=== PATIENT | female | born 1980 | race Caucasian/White ===

== ENCOUNTER 2017-06-10 23:02 | Emergency (ER) | payer BC ==
[~2017-06-10] VITALS: Ht 160 cm; Wt 60.6 kg
[~2017-06-10 23:02] MED LIST: CALTCHW4 PO; CYMB60CA3 PO; FLEX10TA2 PO; GABA300C2 PO; HYDR7.5T38 PO; MELO15TA3 PO; MULTLIQ PO; STOO100C PO; VITACAP33 PO
[2017-06-10] MEDS ORDERED: BACL10TA2 PO (23:14)
[2017-06-10] MEDS ORDERED: AMIT50TA PO (23:14)
[2017-06-11] MEDS ORDERED: NS 1,000 ML IV ONE (01:00)
[2017-06-11 01:46] LABS: BASO % 0.7 % (0.0-1.0); EOS # 0.1 K/mm3 (0.0-0.50); EOS % 0.9 % (0.0-3.0); LARGE UNSTAINED CELL # 0.1 K/mm3 (0.0-0.4); LARGE UNSTAINED CELL % 1.9 % (0.0-4.0); LYMPH # 2.9 K/mm3 (1.5-4.5); MEAN CORPUSCULAR HEMOGLOBIN 27.6 pg (27.0-33.0); MEAN CORPUSCULAR HGB CONC 32.4 g/dl (32.0-36.5); MEAN CORPUSCULAR VOLUME 85.1 fl (80.0-96.0); MONO # 0.4 K/mm3 (0.0-0.8); NEUTROPHILS # 3.9 K/mm3 (1.8-7.7); NEUTROPHILS % 53.5 % (36.0-66.0); PLATELET COUNT, AUTOMATED 297 k/mm3 (150-450); RED CELL DISTRIBUTION WIDTH 13.3 % (11.5-14.5); WHITE BLOOD COUNT 7.2 K/mm3 (4.0-10.0)
[2017-06-11 02:02] LABS: ERYTHROCYTE SEDIMENTATION RATE 18 mm/hr (0-20)
[2017-06-11 02:03] LABS: ALBUMIN 4.1 GM/DL (3.2-5.2); ALBUMIN/GLOBULIN RATIO 1.05 (1.00-1.93); ALKALINE PHOSPHATASE 72 U/L (45-117); ALT/SGPT 35 U/L (12-78); ANION GAP 5 MEQ/L (8-16); AST/SGOT 16 U/L (15-37); BILIRUBIN,DIRECT 0.1 MG/DL (0.0-0.2); BILIRUBIN,TOTAL 0.3 MG/DL (0.2-1.0); BLOOD UREA NITROGEN 8 MG/DL (7-18); CALCIUM LEVEL 9.4 MG/DL (8.5-10.1); CARBON DIOXIDE LEVEL 32 MEQ/L (21-32); CHLORIDE LEVEL 102 MEQ/L (98-107); CREATININE FOR GFR 0.65 MG/DL (0.55-1.02); GLOMERULAR FILTRATION RATE > 60.0 (>60); GLUCOSE, FASTING 96 MG/DL (70-105); POTASSIUM SERUM 3.9 MEQ/L (3.5-5.1); SODIUM LEVEL 139 MEQ/L (136-145)
[2017-06-11] MEDS ORDERED: AMIT25TA PO (02:24)
[2017-06-11 02:29] VITALS: BP 123/68
== END 2017-06-11 02:34 | disposition home or self-care (01) ==
LOC: M ED 23:02
DX: R20.2 Paresthesia of skin (principal); T43.015A Adverse effect of tricyclic antidepressants, initial encounter; X58.XXXA Exposure to other specified factors, initial encounter; Y92.89 Other specified places as the place of occurrence of the external cause; Y93.89 Activity, other specified; Y99.8 Other external cause status; K22.4 Dyskinesia of esophagus; Z79.899 Other long term (current) drug therapy

== ENCOUNTER → 2017-07-30 | Outpatient (REF) | payer BC ==
[~2017-07-30] MED LIST changes: +AMIT25TA PO; +AMIT50TA PO; +BACL10TA2 PO; +IRON50TA PO; +PERC5TAB12 PO; +TYLE1TAB5 PO
[2017-07-30 17:28] LABS: PERCENT SATURATION 9.8 % (13.2-45.0)
[2017-07-30 17:41] LABS: FOLATE 16.2 NG/ML (>5.4)
== END ==
LOC: M SFHCCLAY 10:56
PROVIDERS: ATTEND Nurse Practitioner Family
DX: R20.2 Paresthesia of skin (principal)

== ENCOUNTER 2017-08-12 20:04 | Emergency (ER) | payer BC ==
[~2017-08-12] VITALS: Ht 160 cm; Wt 57.7 kg
[2017-08-12 20:04] VITALS: BP 133/70
[~2017-08-12 20:04] MED LIST changes: -IRON50TA PO; -PERC5TAB12 PO; -TYLE1TAB5 PO
[2017-08-12] MEDS ORDERED: TYLE1TAB5 PO (20:20)
[2017-08-12] MEDS ORDERED: IRON50TA PO (20:21)
[2017-08-12] MEDS ORDERED: OXYCODONE/APAP 5MG/325MG(BULK FOR ED) 1 TABLET PO ONE (22:30)
[2017-08-12] MEDS ORDERED: PERC5TAB12 PO (22:31)
== END 2017-08-12 23:13 | disposition home or self-care (01) ==
LOC: M ED 20:04
DX: R68.84 Jaw pain (principal); Z88.8 Allergy status to other drugs, medicaments and biological substances

== ENCOUNTER 2017-09-17 16:19 | Emergency (ER) | payer BC ==
[~2017-09-17] VITALS: Ht 162.6 cm; Wt 56.4 kg
[~2017-09-17 16:19] MED LIST changes: +IRON50TA PO; +PERC5TAB12 PO; +TYLE1TAB5 PO
[2017-09-17] MEDS ORDERED: AMOX500C PO (16:41)
[2017-09-17] MEDS ORDERED: VICO7.5T11 PO (16:41)
[2017-09-17] MEDS ORDERED: PRED10TA2 PO (16:41)
[2017-09-17] MEDS ORDERED: BACL10TA2 PO (16:41)
[2017-09-17] MEDS ORDERED: OXCA300T PO (16:41)
[2017-09-17] MEDS ORDERED: NS 1,000 ML IV ONE (20:00)
[2017-09-17 20:24] LABS: BASO % 0.2 % (0.0-1.0); IMMATURE GRANULOCYTE % 0.1 % (0-0); LYMPH # 3.7 10^3/uL (1.5-4.5); LYMPH % 37.2 % (24.0-44.0); MEAN CORPUSCULAR HEMOGLOBIN 27.4 pg (27.0-33.0); MEAN CORPUSCULAR HGB CONC 32.5 g/dl (32.0-36.5); MEAN CORPUSCULAR VOLUME 84.2 fl (80.0-96.0); MONO # 0.5 10^3/uL (0.0-0.8); NEUTROPHILS # 5.7 10^3/uL (1.8-7.7); NEUTROPHILS % 57.5 % (36.0-66.0); PLATELET COUNT, AUTOMATED 341 10^3/uL (150-450); RED CELL DISTRIBUTION WIDTH 14.3 % (11.5-14.5); WHITE BLOOD COUNT 9.9 10^3/uL (4.0-10.0)
[2017-09-17 20:51] LABS: ANION GAP 8 MEQ/L (8-16); BLOOD UREA NITROGEN 14 MG/DL (7-18); CALCIUM LEVEL 9.1 MG/DL (8.5-10.1); CARBON DIOXIDE LEVEL 29 MEQ/L (21-32); CHLORIDE LEVEL 103 MEQ/L (98-107); GLOMERULAR FILTRATION RATE > 60.0 (>60); GLUCOSE, FASTING 91 MG/DL (70-105); SODIUM LEVEL 140 MEQ/L (136-145)
[2017-09-17] MEDS ORDERED: ISOVUE-370 76% 100ML VIAL (Q9967) As Ordered ONE (21:03)
--- NOTE | 2017-09-17 21:40 | REPUSA ---
CT of the facial bones with contrast Clinical history: right-sided sinus pressure. Technique: Multiple axial CT images were obtained through the facial bones and paranasal sinuses util izing 3 mm axial slices after administration of nonionic intravenous contrast. Coronal and sagittal r econstructions were also obtained. Findings: The visualized paranasal sinuses are clear, other than a small mucus retention cyst in the inferior left maxillary sinus. The osteomeatal complexes are patent bilaterally. The nasal septum is midline. The visualized mastoid air cells are clear. The osseous structures do not demonstrate any ac marshall abnormalities. The superficial soft tissues are within normal limits. No abnormal areas of enhanc ement are appreciated. The vascular structures demonstrate normal caliber and contour. Impression: Unremarkable CT examination of the facial bones and paranasal sinuses. Small mucus retent ion cyst in the inferior left maxillary sinus.
[2017-09-17] MEDS ORDERED: NEUR300C PO (22:36)
[2017-09-17] MEDS ORDERED: KETOROLAC 30 MG/ML VIAL (J1885) IV ONE (22:45)
[2017-09-17 23:20] VITALS: BP 134/70
== END 2017-09-17 23:24 | disposition home or self-care (01) ==
LOC: M ED 16:19
DX: G89.18 Other acute postprocedural pain (principal); R51 Headache; Z79.2 Long term (current) use of antibiotics; Z79.52 Long term (current) use of systemic steroids; Z79.899 Other long term (current) drug therapy; Z88.8 Allergy status to other drugs, medicaments and biological substances; Z98.818 Other dental procedure status
CPT/HCPCS: 70487; 80048; 81025; 85025; 96374; 99284; J1885; Q9967

== ENCOUNTER 2017-10-18 08:52 | Emergency (ER) | payer BC ==
[~2017-10-18] VITALS: Ht 157.5 cm; Wt 56.4 kg
[~2017-10-18 08:52] MED LIST changes: +AMOX500C PO; +NEUR300C PO; +OXCA300T PO; +PRED10TA2 PO; +VICO7.5T11 PO
[2017-10-18 08:53] VITALS: BP 123/77
[2017-10-18] MEDS ORDERED: HYDR-3719 PO (09:02)
[2017-10-18] MEDS ORDERED: MIRA3350 PO (09:02)
[2017-10-18] MEDS ORDERED: CARB200T98 PO (09:02)
[2017-10-18] MEDS ORDERED: PRED10TA2 PO (09:28)
[2017-10-18] MEDS ORDERED: BENA25TA10 PO (09:28)
[2017-10-18] MEDS ORDERED: SM A PO (09:28)
[2017-10-18] MEDS ORDERED: predniSONE 20 MG TAB PO ONE (09:30)
[2017-10-18] MEDS ORDERED: diphenhydrAMINE 50 MG CAP PO ONE (09:30)
[2017-10-18] MEDS ORDERED: FAMOTIDINE 20 MG TAB PO ONE (09:30)
== END 2017-10-18 09:40 | disposition home or self-care (01) ==
LOC: M ED 08:52
DX: R21 Rash and other nonspecific skin eruption (principal); T42.1X5A Adverse effect of iminostilbenes, initial encounter; X58.XXXA Exposure to other specified factors, initial encounter; Y92.89 Other specified places as the place of occurrence of the external cause; Y93.89 Activity, other specified; Y99.8 Other external cause status; Z88.8 Allergy status to other drugs, medicaments and biological substances

== ENCOUNTER → 2017-10-20 | Outpatient (REF) | payer BC ==
[~2017-10-20] MED LIST changes: +BENA25TA10 PO; +CARB200T98 PO; +HYDR-3719 PO; +MIRA3350 PO; +SM A PO; +VALA500T2 PO; +[UNRECOGNIZED DRUG - CODE] EX
[2017-10-20 11:38] LABS: MEAN CORPUSCULAR HEMOGLOBIN 27.7 pg (27.0-33.0); MEAN CORPUSCULAR HGB CONC 32.9 g/dl (32.0-36.5); MEAN CORPUSCULAR VOLUME 84.3 fl (80.0-96.0); PLATELET COUNT, AUTOMATED 295 10^3/uL (150-450); RED CELL DISTRIBUTION WIDTH 14.7 % (11.5-14.5); WHITE BLOOD COUNT 10.7 10^3/uL (4.0-10.0)
[2017-10-20 12:12] LABS: VITAMIN B12 LEVEL 1336 PG/ML (247-911)
[2017-10-20 12:23] LABS: ALBUMIN 3.8 GM/DL (3.2-5.2); ALBUMIN/GLOBULIN RATIO 1.15 (1.00-1.93); ALKALINE PHOSPHATASE 59 U/L (45-117); ALT/SGPT 32 U/L (12-78); ANION GAP 9 MEQ/L (8-16); AST/SGOT 23 U/L (7-37); BILIRUBIN,TOTAL 0.4 MG/DL (0.2-1.0); BLOOD UREA NITROGEN 15 MG/DL (7-18); CALCIUM LEVEL 8.5 MG/DL (8.5-10.1); CARBON DIOXIDE LEVEL 26 MEQ/L (21-32); CHLORIDE LEVEL 108 MEQ/L (98-107); CHOLESTEROL LEVEL 250 MG/DL (<200); CREATININE FOR GFR 0.61 MG/DL (0.55-1.02); FERRITIN 36 NG/ML (8-252); GLOMERULAR FILTRATION RATE > 60.0 (>60); GLUCOSE, FASTING 89 MG/DL (70-105); PERCENT SATURATION 14.2 % (13.2-45.0); POTASSIUM SERUM 3.6 MEQ/L (3.5-5.1); SODIUM LEVEL 143 MEQ/L (136-145); TOTAL IRON BINDING CAPACITY 353 UG/DL (250-450); TOTAL PROTEIN 7.1 GM/DL (6.4-8.2); TRIGLYCERIDES LEVEL 102 MG/DL (<150)
[2017-10-20 12:24] LABS: FOLATE 19.7 NG/ML (>5.4)
[2017-10-22 00:07] LABS: Lyme Disease IgG/IgM Antibodie <0.91 ISR (0.00-0.90); Lyme Disease IgM Ab Quantitati <0.80 index (0.00-0.79)
== END ==
LOC: M SFHCCLAY 07:13
PROVIDERS: ATTEND Nurse Practitioner Family
DX: D50.9 Iron deficiency anemia, unspecified (principal); K21.0 Gastro-esophageal reflux disease with esophagitis; Z13.6 Encounter for screening for cardiovascular disorders; G44.309 Post-traumatic headache, unspecified, not intractable; Z13.21 Encounter for screening for nutritional disorder

== ENCOUNTER 2017-10-24 01:15 | Emergency (ER) | payer BC ==
[~2017-10-24] VITALS: Ht 162.6 cm; Wt 56.4 kg
[~2017-10-24 01:15] MED LIST changes: -VALA500T2 PO; -[UNRECOGNIZED DRUG - CODE] EX
[2017-10-24] MEDS ORDERED: VALA500T2 PO (01:26)
[2017-10-24] MEDS ORDERED: [UNRECOGNIZED DRUG - CODE] EX (02:00)
[2017-10-24] MEDS ORDERED: clonazePAM 0.5 MG TAB PO ONE (02:15)
[2017-10-24 02:31] VITALS: BP 108/73
== END 2017-10-24 02:55 | disposition home or self-care (01) ==
LOC: M ED 01:15
DX: F41.9 Anxiety disorder, unspecified (principal); R21 Rash and other nonspecific skin eruption

== ENCOUNTER → 2017-11-26 | Outpatient (REF) | payer BC ==
[2017-11-26 12:30] LABS: BASO % 0.7 % (0.0-1.0); EOS # 0.1 10^3/uL (0.0-0.50); EOS % 0.9 % (0.0-3.0); HEMATOCRIT 40.6 % (36.0-47.0); IMMATURE GRANULOCYTE % 0.2 % (0-0); LYMPH # 2.8 10^3/uL (1.5-4.5); LYMPH % 49.9 % (24.0-44.0); MEAN CORPUSCULAR HEMOGLOBIN 27.5 pg (27.0-33.0); MONO # 0.4 10^3/uL (0.0-0.8); MONO % 6.2 % (0.0-5.0); NEUTROPHILS # 2.4 10^3/uL (1.8-7.7); NEUTROPHILS % 42.1 % (36.0-66.0); PLATELET COUNT, AUTOMATED 323 10^3/uL (150-450); RED BLOOD COUNT 4.72 10^6/uL (4.00-5.40); RED CELL DISTRIBUTION WIDTH 14.5 % (11.5-14.5); WHITE BLOOD COUNT 5.6 10^3/uL (4.0-10.0)
[2017-11-26 13:02] LABS: IMMUNOGLOBULIN E 6.2 IU/ML (<100)
[2017-11-26 13:20] LABS: ERYTHROCYTE SEDIMENTATION RATE 8 mm/hr (0-20)
[2017-11-28 00:06] LABS: ENDOMYSIAL ABY IgA Negative (Negative); TISSUE TRANSGLUTAMINASE IgA <2 U/mL (0-3); TISSUE TRANSGLUTAMINASE IgG <2 U/mL (0-5); UNITSIGA FOR GLIADIN IGA 2 units (0-19); UNITSIGG FOR GLIADIN IGG 1 units (0-19)
== END ==
LOC: M LABDRAWC 11:32
DX: L29.9 Pruritus, unspecified (principal); L20.9 Atopic dermatitis, unspecified; R53.81 Other malaise
CPT/HCPCS: 82785

== ENCOUNTER → 2018-05-02 | Outpatient (REF) | payer BC ==
[2018-05-03 10:16] LABS: ANTINUCLEAR ANTIBODIES DIRECT Negative (Negative)
== END ==
LOC: M LABDRAWC 11:11
DX: L56.8 Other specified acute skin changes due to ultraviolet radiation (principal)
CPT/HCPCS: 36415

== ENCOUNTER → 2018-10-05 | Outpatient (REF) | payer BC ==
[2018-10-05 11:38] LABS: HEMATOCRIT 39.6 % (36.0-47.0); HEMOGLOBIN 12.7 g/dl (12.0-15.5); MEAN CORPUSCULAR HEMOGLOBIN 28.1 pg (27.0-33.0); MEAN CORPUSCULAR HGB CONC 32.1 g/dl (32.0-36.5); MEAN CORPUSCULAR VOLUME 87.6 fl (80.0-96.0); PLATELET COUNT, AUTOMATED 277 10^3/uL (150-450); RED BLOOD COUNT 4.52 10^6/uL (4.00-5.40); RED CELL DISTRIBUTION WIDTH 13.8 % (11.5-14.5)
[2018-10-05 11:55] LABS: ADD MANUAL DIFFER YES; DIFF SLIDE NUMBER 180; POSITIVE DIFF POS FLAG; WHITE BLOOD COUNT 9.1 10^3/uL (4.0-10.0)
[2018-10-05 12:18] LABS: ERYTHROCYTE SEDIMENTATION RATE 2 mm/hr (0-20)
[2018-10-05 12:43] LABS: LYMPHOCYTES 76 % (16-52); MONOCYTES 1 % (0-8); NEUTROPHILS 23 % (35-75)
[2018-10-05 12:44] LABS: PLATELET ESTIMATE NORMAL (NORMAL)
[2018-10-05 12:54] LABS: ALBUMIN 3.4 GM/DL (3.2-5.2); ALBUMIN/GLOBULIN RATIO 1.26 (1.00-1.93); ALKALINE PHOSPHATASE 42 U/L (45-117); ALT/SGPT 22 U/L (12-78); ANION GAP 9 MEQ/L (8-16); AST/SGOT 13 U/L (7-37); BILIRUBIN,TOTAL 0.6 MG/DL (0.2-1.0); BLOOD UREA NITROGEN 12 MG/DL (7-18); C REACTIVE PROTEIN QUANTITATIV < 0.30 MG/DL (0.00-0.30); CALCIUM LEVEL 8.2 MG/DL (8.5-10.1); CARBON DIOXIDE LEVEL 30 MEQ/L (21-32); CHLORIDE LEVEL 103 MEQ/L (98-107); CREATININE FOR GFR 0.75 MG/DL (0.55-1.30); FERRITIN 22 NG/ML (8-252); GLOMERULAR FILTRATION RATE > 60.0 (>60); GLUCOSE, FASTING 61 MG/DL (70-100); IRON (FE) 67 UG/DL (50-170); PERCENT SATURATION 19.9 % (13.2-45.0); POTASSIUM SERUM 3.3 MEQ/L (3.5-5.1); RHEUMATOID FACTOR QUANT < 10.0 IU/ML (<15.0); SODIUM LEVEL 142 MEQ/L (136-145); TOTAL IRON BINDING CAPACITY 337 UG/DL (250-450); TOTAL PROTEIN 6.1 GM/DL (6.4-8.2); VITAMIN B12 LEVEL 1154 PG/ML (247-911)
[2018-10-08 15:15] LABS: ANA (HEP2) Negative (.); ANGIOTENSIN 1 CONVERTING ENZYM 31 U/L (14-82); Antimyeloperxidase(MPO) Abs <9.0 U/mL (0.0-9.0); Antiproteinase 3 (PR-3) Abs <3.5 U/mL (0.0-3.5); Cytoplasmic (C-ANCA) <1:20 titer (Neg:<1:20); Lyme Disease IgG/IgM Antibodie <0.91 ISR (0.00-0.90); Lyme Disease IgM Ab Quantitati <0.80 index (0.00-0.79); Perinuclear (P-ANCA) <1:20 titer (Neg:<1:20)
== END ==
LOC: M SFHCCLAY 09:09
DX: G51.8 Other disorders of facial nerve (principal); D50.9 Iron deficiency anemia, unspecified
CPT/HCPCS: 82746

== ENCOUNTER → 2018-11-28 | Outpatient (REF) | payer BC ==
[~2018-11-28] MED LIST changes: -OXCA300T PO; +OXCA300T14 PO; +VALA500T5 PO; +[UNRECOGNIZED DRUG - CODE] EX
[2018-11-28 12:37] LABS: CALCIUM LEVEL 8.9 MG/DL (8.5-10.1); POTASSIUM SERUM 3.9 MEQ/L (3.5-5.1)
== END ==
LOC: M SFHCCLAY 07:55
PROVIDERS: ATTEND Nurse Practitioner Family
DX: K21.0 Gastro-esophageal reflux disease with esophagitis (principal); D50.9 Iron deficiency anemia, unspecified

== ENCOUNTER → 2018-11-28 | Outpatient (REF) | payer BC ==
[2018-11-28 12:28] LABS: IMMUNOGLOBULIN E 18.5 IU/ML (<100); THYROID PEROXIDASE ANTIBODY < 28.0 U/ML (<60.0)
== END ==
LOC: M LABDRAWC 08:01
PROVIDERS: ATTEND Physician Assistant
DX: L50.9 Urticaria, unspecified (principal); R53.81 Other malaise

== ENCOUNTER → 2019-02-24 | Outpatient (REF) | payer BC ==
[2019-02-24 12:43] LABS: MAGNESIUM LEVEL 1.9 MG/DL (1.8-2.4)
[2019-02-24 13:06] LABS: TOTAL 25(OH) VITAMIN D 26.3 NG/ML (30.0-100.0)
== END ==
LOC: M LABDRAWC 11:53
PROVIDERS: ATTEND Internal Medicine Gastroenterology
DX: K21.9 Gastro-esophageal reflux disease without esophagitis (principal); K59.00 Constipation, unspecified; G50.0 Trigeminal neuralgia; R13.10 Dysphagia, unspecified

== ENCOUNTER → 2019-02-24 | Outpatient (REF) | payer BC ==
[2019-02-24 12:50] LABS: CHOLESTEROL RISK RATIO 6.264 (<5)
== END ==
LOC: M SFHCCLAY 08:38
PROVIDERS: ATTEND Nurse Practitioner Family
DX: E78.5 Hyperlipidemia, unspecified (principal)

== ENCOUNTER → 2019-06-23 | Outpatient (CLI) | payer BC ==
[~2019-06-23] MED LIST changes: -VICO7.5T11 PO; +VICO7.5T12 PO
--- NOTE | 2019-06-23 09:37 | REP ---
Preoperative evaluation. FINDINGS: The superior mediastinal structures are midline. The cardiac silhouette is unremarkable in size, shape, and position. The diaphragmatic surfaces of the lungs are regular, and the costophrenic angles are clear. The pulmonary waterman are clear. The imaged osseous structures are intact. IMPRESSION: There is no acute cardiopulmonary disease. Electronically Signed by Ketan Scott DO 06/23/2019 02:19 P
[2019-06-23 12:27] LABS: BASO % 0.6 % (0.0-1.0); EOS % 0.4 % (0.0-3.0); HEMATOCRIT 42.6 % (36.0-47.0); HEMOGLOBIN 13.6 g/dl (12.0-15.5); LYMPH # 1.9 10^3/uL (1.5-4.5); LYMPH % 28.6 % (24.0-44.0); MEAN CORPUSCULAR HEMOGLOBIN 26.8 pg (27.0-33.0); MEAN CORPUSCULAR HGB CONC 31.9 g/dl (32.0-36.5); MEAN CORPUSCULAR VOLUME 83.9 fl (80.0-96.0); MONO # 0.4 10^3/uL (0.0-0.8); MONO % 5.4 % (0.0-5.0); NEUTROPHILS # 4.4 10^3/uL (1.8-7.7); NEUTROPHILS % 64.7 % (36.0-66.0); PLATELET COUNT, AUTOMATED 307 10^3/uL (150-450); RED BLOOD COUNT 5.08 10^6/uL (4.00-5.40); WHITE BLOOD COUNT 6.7 10^3/uL (4.0-10.0)
[2019-06-23 12:29] LABS: ALBUMIN 3.7 GM/DL (3.2-5.2); BLOOD UREA NITROGEN 14 MG/DL (7-18); CARBON DIOXIDE LEVEL 28 MEQ/L (21-32); CHLORIDE LEVEL 106 MEQ/L (98-107); CHOLESTEROL LEVEL 247 MG/DL (< 200); CREATININE FOR GFR 0.73 MG/DL (0.55-1.30); GLOMERULAR FILTRATION RATE > 60.0 (>60); GLUCOSE,RANDOM 110 MG/DL (LESS THAN 200); HCG, SERUM QUANTITATIVE < 1.0 MIU/ML; POTASSIUM SERUM 3.8 MEQ/L (3.5-5.1); SODIUM LEVEL 140 MEQ/L (136-145); TOTAL PROTEIN 7.1 GM/DL (6.4-8.2)
[2019-06-23 12:36] LABS: INR 1.03; PROTHROMBIN TIME 13.2 SECONDS (11.8-14.0)
[2019-06-23 12:37] LABS: PARTIAL THROMBOPLASTIN TIME 36.4 SECONDS (25.0-38.4)
[2019-06-23 12:44] LABS: APPEARANCE, URINE CLEAR (CLEAR); BACTERIA, URINE AUTO 1+ (NEGATIVE); BILIRUBIN, URINE AUTO NEGATIVE (NEGATIVE); BLOOD, URINE BLOOD 3+ (NEGATIVE); COLOR, URINE RED (YELLOW); GLUCOSE, URINE (UA) AUTO NEGATIVE (NEGATIVE); KETONE, URINE AUTO NEGATIVE (NEGATIVE); LEUKOCYTE ESTERASE, URINE AUTO 2+ (NEGATIVE); NITRITE, URINE AUTO NEGATIVE (NEGATIVE); PROTEIN, URINE AUTO NEGATIVE (NEGATIVE); RBC, URINE AUTO TNTC /HPF (0-3); SPECIFIC GRAVITY URINE AUTO 1.006 (1.002-1.035); SQUAMOUS EPITHELIAL CELL UR AU 0 /HPF (0-6); UROBILINOGEN, URINE AUTO 0.2 mg/dL (0.0-2.0); WBC, URINE AUTO 22 /HPF (0-3)
== END ==
LOC: M CLY 08:44
PROVIDERS: ATTEND Specialist
DX: Z00.00 Encounter for general adult medical examination without abnormal findings (principal)

== ENCOUNTER → 2019-11-22 | Outpatient (REF) | payer BC ==
[2019-11-22 12:04] LABS: HEMATOCRIT 41.6 % (36.0-47.0); HEMOGLOBIN 13.1 g/dl (12.0-15.5); MEAN CORPUSCULAR HEMOGLOBIN 26.3 pg (27.0-33.0); MEAN CORPUSCULAR HGB CONC 31.5 g/dl (32.0-36.5); MEAN CORPUSCULAR VOLUME 83.4 fl (80.0-96.0); PLATELET COUNT, AUTOMATED 291 10^3/uL (150-450); RED BLOOD COUNT 4.99 10^6/uL (4.00-5.40); WHITE BLOOD COUNT 7.6 10^3/uL (4.0-10.0)
[2019-11-22 12:17] LABS: ALBUMIN 3.8 GM/DL (3.2-5.2); ALT/SGPT 43 U/L (12-78); BILIRUBIN,TOTAL 0.6 MG/DL (0.2-1.0); BLOOD UREA NITROGEN 8 MG/DL (7-18); CALCIUM LEVEL 9.1 MG/DL (8.5-10.1); CARBON DIOXIDE LEVEL 28 MEQ/L (21-32); CHLORIDE LEVEL 104 MEQ/L (98-107); CHOLESTEROL LEVEL 291 MG/DL (<200); CHOLESTEROL RISK RATIO 6.062 (<5); CREATININE FOR GFR 0.66 MG/DL (0.55-1.30); FERRITIN 18 NG/ML (8-252); GLOMERULAR FILTRATION RATE > 60.0 (>60); GLUCOSE, FASTING 91 MG/DL (70-100); HDL CHOLESTEROL 48 MG/DL (>40); IRON (FE) 62 UG/DL (50-170); LDL CHOLESTEROL 201 MG/DL (<100); NON-HDL-C 243 MG/DL; PERCENT SATURATION 14.4 % (13.2-45.0); POTASSIUM SERUM 3.8 MEQ/L (3.5-5.1); SODIUM LEVEL 139 MEQ/L (136-145); TOTAL 25(OH) VITAMIN D 31.7 NG/ML (30.0-100.0); TOTAL IRON BINDING CAPACITY 432 UG/DL (250-450); TOTAL PROTEIN 7.2 GM/DL (6.4-8.2); TRIGLYCERIDES LEVEL 212 MG/DL (<150); VITAMIN B12 LEVEL 910 PG/ML (247-911)
== END ==
LOC: M SFHCCLAY 08:10
PROVIDERS: ATTEND Nurse Practitioner Family
DX: K21.0 Gastro-esophageal reflux disease with esophagitis (principal); E78.5 Hyperlipidemia, unspecified; D50.9 Iron deficiency anemia, unspecified

== ENCOUNTER → 2020-01-03 | Outpatient (REF) | payer BC ==
[2020-01-03 12:09] LABS: ALBUMIN 3.8 GM/DL (3.2-5.2); BILIRUBIN,DIRECT 0.1 MG/DL (0.0-0.2); BILIRUBIN,TOTAL 0.5 MG/DL (0.2-1.0); CHOLESTEROL RISK RATIO 3.744 (<5); TOTAL PROTEIN 7.3 GM/DL (6.4-8.2)
== END ==
LOC: M SFHCCLAY 08:19
PROVIDERS: ATTEND Nurse Practitioner Family
DX: E78.5 Hyperlipidemia, unspecified (principal)

== ENCOUNTER → 2020-03-19 | Outpatient (CLI) | payer BC ==
[~2020-03-19] MED LIST changes: +PROHANCE 279.3MG/ML 15ML VIAL As Ordered ONE; +PROHANCE 279.3MG/ML 5ML VIAL As Ordered ONE
--- NOTE | 2020-03-19 18:47 | REPVR ---
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 Contrast material: PROHANCE; Contrast volume: 17 ml; Contrast route: IV; COMPARISON: No relevant prior studies available. FINDINGS: Brain: There is no restricted diffusion within the brain to suggest an acute infarct. No significant white matter disease. No cerebral edema. Artifact limits the diffusion sequence. Aside from the artifact, there is no definitive restricted diffusion acute territorial type infarct. 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 No abnormally enhancing intracranial mass is visualized. This study is limited by the absence of axial T1 weighted sequence. Ventricles: No ventriculomegaly. Bones/joints: Unremarkable, as visualized. Soft tissues: There is a linear band of hypointensity within the right occipital scalp, likely representing scar tissue. Sinuses: A mucous retention cyst or polyp is identified in the left maxillary sinus. Mastoid air cells: No mastoid effusion. Internal auditory canals: There is no mass effect or pathological enhancement involving the bilateral internal auditory canals or cerebellopontine angle cisterns. Orbits: No acute abnormality visualized. IMPRESSION: 1. No definitive acute intracranial abnormality. 2. There is no mass effect or pathological enhancement involving the bilateral internal auditory canals or cerebellopontine angle cisterns. 3. Paranasal sinus disease. 4. Additional findings described above. Electronically signed by: Mario Francis On 03/19/2020 18:46:33 PM
== END ==
LOC: M RAD 14:52
PROVIDERS: ATTEND Nurse Practitioner Family
DX: G51.9 Disorder of facial nerve, unspecified (principal)
CPT/HCPCS: 70553; A9576

== ENCOUNTER → 2020-04-04 | Outpatient (REF) | payer BC ==
[~2020-04-04] MED LIST changes: -PROHANCE 279.3MG/ML 15ML VIAL As Ordered ONE; -PROHANCE 279.3MG/ML 5ML VIAL As Ordered ONE
[2020-04-04 13:24] LABS: CHOLESTEROL RISK RATIO 3.476 (<5)
== END ==
LOC: M SFHCCLAY 08:08
PROVIDERS: ATTEND Nurse Practitioner Family
DX: E78.5 Hyperlipidemia, unspecified (principal)

== ENCOUNTER → 2020-05-17 | Outpatient (CLI) | payer BC | LOC: M LABSMTC 12:56 | PROVIDERS: ATTEND Family Medicine | DX: Z11.59 Encounter for screening for other viral diseases (principal); Z20.828 Contact with and (suspected) exposure to other viral communicable diseases | CPT/HCPCS: C9803; U0003 ==

== ENCOUNTER → 2020-07-05 | Outpatient (REF) | payer BC ==
[2020-07-05 12:50] LABS: HEMATOCRIT 39.5 % (36.0-47.0); HEMOGLOBIN 12.5 g/dl (12.0-15.5); MEAN CORPUSCULAR HEMOGLOBIN 26.3 pg (27.0-33.0); MEAN CORPUSCULAR HGB CONC 31.6 g/dl (32.0-36.5); MEAN CORPUSCULAR VOLUME 83.2 fl (80.0-96.0); PLATELET COUNT, AUTOMATED 307 10^3/uL (150-450); RED BLOOD COUNT 4.75 10^6/uL (4.00-5.40); WHITE BLOOD COUNT 8.2 10^3/uL (4.0-10.0)
[2020-07-05 13:33] LABS: ALBUMIN 3.6 GM/DL (3.2-5.2); ALT/SGPT 48 U/L (12-78); BILIRUBIN,TOTAL 0.7 MG/DL (0.2-1.0); BLOOD UREA NITROGEN 18 MG/DL (7-18); CALCIUM LEVEL 8.7 MG/DL (8.5-10.1); CARBON DIOXIDE LEVEL 29 MEQ/L (21-32); CHLORIDE LEVEL 105 MEQ/L (98-107); CHOLESTEROL LEVEL 154 MG/DL (<200); CHOLESTEROL RISK RATIO 4.277 (<5); CREATININE FOR GFR 0.65 MG/DL (0.55-1.30); FERRITIN 27 NG/ML (8-252); FOLATE 17.3 NG/ML (>5.4); GLOMERULAR FILTRATION RATE > 60.0 (>60); GLUCOSE, FASTING 84 MG/DL (70-100); HDL CHOLESTEROL 36 MG/DL (>40); IRON (FE) 43 UG/DL (50-170); LDL CHOLESTEROL 85 MG/DL (<100); NON-HDL-C 118 MG/DL; PERCENT SATURATION 12.1 % (13.2-45.0); POTASSIUM SERUM 3.6 MEQ/L (3.5-5.1); SODIUM LEVEL 141 MEQ/L (136-145); TOTAL 25(OH) VITAMIN D 40.2 NG/ML (30.0-100.0); TOTAL IRON BINDING CAPACITY 356 UG/DL (250-450); TRIGLYCERIDES LEVEL 164 MG/DL (<150); VITAMIN B12 LEVEL 874 PG/ML (247-911)
== END ==
LOC: M LABDRAWC 11:16
PROVIDERS: ATTEND Nurse Practitioner Family
DX: K21.0 Gastro-esophageal reflux disease with esophagitis (principal); E78.5 Hyperlipidemia, unspecified; D50.9 Iron deficiency anemia, unspecified; G89.29 Other chronic pain

== ENCOUNTER → 2020-09-23 | Outpatient (REF) | payer BC ==
[2020-09-23 15:03] LABS: FREE T4 1.06 NG/DL (0.76-1.46); THYROID PEROXIDASE ANTIBODY 41.2 U/ML (<60.0); THYROID STIMULATING HORMONE 0.462 uIU/ML (0.358-3.740)
== END ==
LOC: M SFHCRHEU 10:40
PROVIDERS: ATTEND Internal Medicine
DX: M79.7 Fibromyalgia (principal)

== ENCOUNTER → 2021-02-04 | Outpatient (REF) | payer BC ==
[~2021-02-04] MED LIST changes: -AMIT25TA PO; +AMIT25TA17 PO
[2021-02-04 11:34] LABS: HEMATOCRIT 43.1 % (36.0-47.0); HEMOGLOBIN 13.2 g/dl (12.0-15.5); MEAN CORPUSCULAR HEMOGLOBIN 26.3 pg (27.0-33.0); MEAN CORPUSCULAR HGB CONC 30.6 g/dl (32.0-36.5); MEAN CORPUSCULAR VOLUME 85.9 fl (80.0-96.0); PLATELET COUNT, AUTOMATED 353 10^3/uL (150-450); RED BLOOD COUNT 5.02 10^6/uL (4.00-5.40); WHITE BLOOD COUNT 7.8 10^3/uL (4.0-10.0)
[2021-02-04 12:00] LABS: ERYTHROCYTE SEDIMENTATION RATE 32 mm/hr (0-20)
[2021-02-04 12:04] LABS: ALBUMIN 3.8 GM/DL (3.2-5.2); ALT/SGPT 39 U/L (12-78); BILIRUBIN,TOTAL 0.4 MG/DL (0.2-1.0); BLOOD UREA NITROGEN 12 MG/DL (7-18); CALCIUM LEVEL 9.3 MG/DL (8.5-10.1); CARBON DIOXIDE LEVEL 32 MEQ/L (21-32); CHLORIDE LEVEL 103 MEQ/L (98-107); CHOLESTEROL LEVEL 190 MG/DL (<200); CHOLESTEROL RISK RATIO 5.757 (<5); CREATININE FOR GFR 0.77 MG/DL (0.55-1.30); GLOMERULAR FILTRATION RATE > 60.0 (>60); GLUCOSE, FASTING 88 MG/DL (70-100); HDL CHOLESTEROL 33 MG/DL (>40); LDL CHOLESTEROL 81 MG/DL (<100); NON-HDL-C 157 MG/DL; POTASSIUM SERUM 4.1 MEQ/L (3.5-5.1); RHEUMATOID FACTOR QUANT < 10.0 IU/ML (<15.0); SODIUM LEVEL 141 MEQ/L (136-145); TOTAL PROTEIN 7.3 GM/DL (6.4-8.2); TRIGLYCERIDES LEVEL 381 MG/DL (<150)
[2021-02-04 12:06] LABS: TOTAL 25(OH) VITAMIN D 42.8 NG/ML (30.0-100.0)
[2021-02-05 23:06] LABS: ANA (HEP2) Positive (.); Lyme Disease IgG/IgM Antibodie <0.91 ISR (0.00-0.90); Lyme Disease IgM Ab Quantitati <0.80 index (0.00-0.79)
== END ==
LOC: M SFHCCLAY 08:56
PROVIDERS: ATTEND Nurse Practitioner Family
DX: K21.00 Gastro-esophageal reflux disease with esophagitis, without bleeding (principal); E78.5 Hyperlipidemia, unspecified; G89.29 Other chronic pain; G51.8 Other disorders of facial nerve

== ENCOUNTER → 2021-04-02 | Outpatient (CLI) | payer BC ==
--- NOTE | 2021-04-02 09:50 | REP ---
INDICATION: PRE OP COMPARISON: None. TECHNIQUE: PA and lateral. FINDINGS: The mediastinum and cardiac silhouette are normal. The lung waterman are clear and without acute consolidation, effusion, or pneumothorax. The skeletal structures are intact and normal. IMPRESSION: No acute cardiopulmonary process. <Electronically signed by Abimael Harris > 04/02/21 0946
== END ==
LOC: M CLY 09:09
PROVIDERS: ATTEND Specialist
DX: Z01.818 Encounter for other preprocedural examination (principal)

== ENCOUNTER → 2021-04-02 | Outpatient (REF) | payer BC ==
[2021-04-02 11:42] LABS: APPEARANCE, URINE HAZY (CLEAR); BACTERIA, URINE AUTO 1+ (NEGATIVE); BILIRUBIN, URINE AUTO NEGATIVE (NEGATIVE); BLOOD, URINE BLOOD NEGATIVE (NEGATIVE); COLOR, URINE YELLOW (YELLOW); GLUCOSE, URINE (UA) AUTO NEGATIVE (NEGATIVE); KETONE, URINE AUTO NEGATIVE (NEGATIVE); LEUKOCYTE ESTERASE, URINE AUTO NEGATIVE (NEGATIVE); MUCUS, URINE SMALL (NEGATIVE); NITRITE, URINE AUTO NEGATIVE (NEGATIVE); PROTEIN, URINE AUTO 2+ mg/dL (NEGATIVE); RBC, URINE AUTO 7 /HPF (0-3); SQUAMOUS EPITHELIAL CELL UR AU 9 /HPF (0-6); WBC, URINE AUTO 2 /HPF (0-3)
[2021-04-02 11:47] LABS: HEMATOCRIT 40.8 % (36.0-47.0); HEMOGLOBIN 12.6 g/dl (12.0-15.5); MEAN CORPUSCULAR HEMOGLOBIN 26.3 pg (27.0-33.0); MEAN CORPUSCULAR HGB CONC 30.9 g/dl (32.0-36.5); PLATELET COUNT, AUTOMATED 311 10^3/uL (150-450); WHITE BLOOD COUNT 9.2 10^3/uL (4.0-10.0)
[2021-04-02 11:57] LABS: INR 0.98; PROTHROMBIN TIME 13.2 SECONDS (12.5-14.3)
[2021-04-02 11:58] LABS: PARTIAL THROMBOPLASTIN TIME 33.6 SECONDS (24.2-38.5)
[2021-04-02 12:09] LABS: ALBUMIN 3.6 GM/DL (3.2-5.2); ALT/SGPT 30 U/L (12-78); BILIRUBIN,TOTAL 0.5 MG/DL (0.2-1.0); BLOOD UREA NITROGEN 12 MG/DL (7-18); CARBON DIOXIDE LEVEL 30 MEQ/L (21-32); CHLORIDE LEVEL 103 MEQ/L (98-107); CREATININE FOR GFR 0.75 MG/DL (0.55-1.30); GLOMERULAR FILTRATION RATE > 60.0 (>60); GLUCOSE, FASTING 136 MG/DL (70-100); POTASSIUM SERUM 3.7 MEQ/L (3.5-5.1); SODIUM LEVEL 139 MEQ/L (136-145); TOTAL PROTEIN 6.7 GM/DL (6.4-8.2)
== END ==
LOC: M LABDRAWC 11:16
DX: Z01.818 Encounter for other preprocedural examination (principal)

== ENCOUNTER 2021-04-27 18:27 | Emergency (ER) | payer BC ==
[~2021-04-27] VITALS: Ht 160 cm; Wt 100.0 kg
[2021-04-27] MEDS ORDERED: HYDR-3363 (18:39)
[2021-04-27] MEDS ORDERED: ZOLP5TAB (18:39)
[2021-04-27] MEDS ORDERED: PREG150C (18:39)
[2021-04-27] MEDS ORDERED: ESCITALOPRAM (18:39)
[2021-04-27] MEDS ORDERED: CETI-24 (18:39)
[2021-04-27] MEDS ORDERED: FLUTISP (18:39)
[2021-04-27] MEDS ORDERED: ATOR1TAB21 (18:39)
[2021-04-27] MEDS ORDERED: MAGN100T PO (18:39)
[2021-04-27] MEDS ORDERED: LR 1,000 ML IV ONE (19:50)
[2021-04-27] MEDS ORDERED: GOLYTELY SOLN 4000 ML BTL PO ONE (19:50)
[2021-04-27] MEDS ORDERED: [UNRECOGNIZED DRUG - CODE] PO (19:55)
[2021-04-27] MEDS ORDERED: SENN-120 PO (19:55)
[2021-04-27] MEDS ORDERED: SENNA 8.6 MG TAB (SENOKOT) PO ONE (21:20)
--- NOTE | 2021-04-27 21:53 | REPVR ---
PROCEDURE INFORMATION: Exam: XR Abdomen Exam date and time: 04/27/2021 7:48 PM Age: 41 years old Clinical indication: Abdominal pain; Additional info: Examine gas pattern TECHNIQUE: Imaging protocol: XR of the abdomen. Views: 2 Views. Upright and supine views. COMPARISON: CT ABD PELVIS W/O CONTRAST 08/26/2016 12:52 PM FINDINGS: Gastrointestinal tract: Moderate gas in the GI tract with borderline to mild small-bowel distention. Air-fluid levels are noted in the colon and small bowel. Intraperitoneal space: No free air. Bones/joints: Unremarkable for age. IMPRESSION: Moderate gas with borderline to mild small-bowel distention and air-fluid levels in both colon and small bowel suggesting diarrhea and may reflect enteritis. Obstruction is not excluded. Electronically signed by: Alireza Gutierrez On 04/27/2021 21:52:46 PM
[2021-04-27] MEDS ORDERED: MORPHINE 2 MG/ML 1ML VIAL (J2270) IV ONE (23:10)
[2021-04-27] MEDS: GASTROGRAFIN SOLUTION 30ML PO SCH ×2 (23:24→23:55)
[2021-04-28 00:07] LABS: BASO % 0.3 % (0.0-1.0); EOS % 0.2 % (0.0-3.0); HEMATOCRIT 38.4 % (36.0-47.0); HEMOGLOBIN 12.2 g/dl (12.0-15.5); LYMPH # 2.1 10^3/uL (1.5-5.0); LYMPH % 15.7 % (24.0-44.0); MEAN CORPUSCULAR HEMOGLOBIN 26.3 pg (27.0-33.0); MEAN CORPUSCULAR HGB CONC 31.8 g/dl (32.0-36.5); MEAN CORPUSCULAR VOLUME 82.9 fl (80.0-96.0); MONO # 0.9 10^3/uL (0.0-0.8); MONO % 6.7 % (2.0-8.0); NEUTROPHILS # 10.3 10^3/uL (1.5-8.5); PLATELET COUNT, AUTOMATED 322 10^3/uL (150-450); RED BLOOD COUNT 4.63 10^6/uL (4.00-5.40); WHITE BLOOD COUNT 13.6 10^3/uL (4.0-10.0)
[2021-04-28 00:09] LABS: ALBUMIN 3.2 GM/DL (3.2-5.2); ALT/SGPT 22 U/L (12-78); BILIRUBIN,DIRECT 0.1 MG/DL (0.0-0.2); BILIRUBIN,TOTAL 0.3 MG/DL (0.2-1.0); BLOOD UREA NITROGEN 12 MG/DL (7-18); CALCIUM LEVEL 8.3 MG/DL (8.5-10.1); CARBON DIOXIDE LEVEL 28 MEQ/L (21-32); CHLORIDE LEVEL 110 MEQ/L (98-107); CREATININE FOR GFR 0.57 MG/DL (0.55-1.30); GLOMERULAR FILTRATION RATE > 60.0 (>58); GLUCOSE, FASTING 100 MG/DL (70-100); LIPASE 196 U/L (73-393); POTASSIUM SERUM 3.7 MEQ/L (3.5-5.1); SODIUM LEVEL 142 MEQ/L (136-145); TOTAL PROTEIN 6.5 GM/DL (6.4-8.2)
[2021-04-28] MEDS ORDERED: ISOVUE-370 76% 100ML VIAL As Ordered ONE (00:23)
[2021-04-28] MEDS ORDERED: MORPHINE 4 MG/ML 1ML VIAL/SYRINGE (J2270) IV ONE (01:35)
[2021-04-28] MEDS ORDERED: fentaNYL 100 MCG/2 ML INJECTION (J3010) IV ONE (01:35)
--- NOTE | 2021-04-28 01:45 | REPVR ---
PROCEDURE INFORMATION: Exam: CT Abdomen And Pelvis With Contrast Exam date and time: 04/28/2021 1:08 AM Age: 41 years old Clinical indication: Other: R/O sbo TECHNIQUE: Imaging protocol: Computed tomography of the abdomen and pelvis with contrast. Radiation optimization: All CT scans at this facility use at least one of these dose optimization techniques: automated exposure control; mA and/or kV adjustment per patient size (includes targeted exams where dose is matched to clinical indication); or iterative reconstruction. Contrast material: ISOVUE 370; Contrast volume: 100 ml; Contrast route: INTRAVENOUS (IV); COMPARISON: CT ABD PELVIS W/O CONTRAST 08/26/2016 12:52 PM FINDINGS: Liver: The liver attenuation is 80 Hounsfield units and the spleen is 118 Hounsfield units. Gallbladder and bile ducts: Normal. No calcified stones. No ductal dilation. Pancreas: Normal. No ductal dilation. Spleen: Normal. No splenomegaly. Adrenal glands: Normal. No mass. Kidneys and ureters: Normal. No hydronephrosis. Stomach and bowel: Fluid in the colon to the level of the rectum with air-fluid levels. No small bowel distention. Appendix: There are no changes of appendicitis. A normal appendix is not seen. Intraperitoneal space: Unremarkable. No free air. No significant fluid collection. Vasculature: Unremarkable. No abdominal aortic aneurysm. Lymph nodes: Unremarkable. No enlarged lymph nodes. Urinary bladder: Unremarkable as visualized. Reproductive: Probable anterior uterine fibroid measuring 2.4 cm. Bones/joints: Unremarkable. No acute fracture. Soft tissues: Unremarkable. IMPRESSION: 1. Decreased colonic stool and contents since 08/26/2016. 2. Mild fatty infiltration of the liver. 3. Probable anterior uterine fibroid measuring 2.4 cm. 4. Fluid throughout the colon to the rectum consistent with diarrhea. 5. Otherwise negative CT abdomen/pelvis. No small bowel distention or obstruction is seen. Electronically signed by: Alireza Gutierrez On 04/28/2021 01:45:07 AM
[2021-04-28 02:30] VITALS: BP 117/65
== END 2021-04-28 02:54 | disposition home or self-care (01) ==
LOC: M ED 18:27
DX: K59.00 Constipation, unspecified (principal); G50.0 Trigeminal neuralgia; Y92.9 Unspecified place or not applicable; Y93.9 Activity, unspecified; E78.5 Hyperlipidemia, unspecified; R93.5 Abnormal findings on diagnostic imaging of other abdominal regions, including retroperitoneum; E73.9 Lactose intolerance, unspecified; Z79.899 Other long term (current) drug therapy; Z88.1 Allergy status to other antibiotic agents; Z88.8 Allergy status to other drugs, medicaments and biological substances
CPT/HCPCS: 74019; 74177; 80048; 80076; 83690; 85025; 96365; 96375; 96376; 99284; J2270; J3010; Q9963; Q9967

== ENCOUNTER → 2021-05-01 | Outpatient (REF) | payer BC ==
[~2021-05-01] MED LIST changes: +ATOR1TAB21; +CETI-24; +ESCITALOPRAM; +FLUTISP; +HYDR-3363; +MAGN100T PO; +PREG150C; +SENN-120 PO; +ZOLP5TAB; +[UNRECOGNIZED DRUG - CODE] PO
[2021-05-01 16:19] LABS: HEMATOCRIT 43.7 % (36.0-47.0); HEMOGLOBIN 13.6 g/dl (12.0-15.5); MEAN CORPUSCULAR HEMOGLOBIN 26.2 pg (27.0-33.0); MEAN CORPUSCULAR HGB CONC 31.1 g/dl (32.0-36.5); MEAN CORPUSCULAR VOLUME 84.2 fl (80.0-96.0); PLATELET COUNT, AUTOMATED 411 10^3/uL (150-450); RED BLOOD COUNT 5.19 10^6/uL (4.00-5.40); WHITE BLOOD COUNT 9.8 10^3/uL (4.0-10.0)
[2021-05-01 16:43] LABS: ALBUMIN 4.2 GM/DL (3.2-5.2); ALT/SGPT 21 U/L (12-78); BILIRUBIN,TOTAL 0.5 MG/DL (0.2-1.0); BLOOD UREA NITROGEN 16 MG/DL (7-18); CALCIUM LEVEL 9.3 MG/DL (8.5-10.1); CARBON DIOXIDE LEVEL 27 MEQ/L (21-32); CHLORIDE LEVEL 105 MEQ/L (98-107); CREATININE FOR GFR 0.71 MG/DL (0.55-1.30); GLOMERULAR FILTRATION RATE > 60.0 (>58); GLUCOSE, FASTING 92 MG/DL (70-100); POTASSIUM SERUM 4.4 MEQ/L (3.5-5.1); SODIUM LEVEL 136 MEQ/L (136-145)
== END ==
LOC: M SFHCCLAY 10:07
PROVIDERS: ATTEND Physician Assistant
DX: G50.0 Trigeminal neuralgia (principal)

== ENCOUNTER 2021-05-22 08:26 | Emergency (ER) | payer BC ==
[~2021-05-22] VITALS: Ht 160 cm; Wt 90.4 kg
[2021-05-22] MEDS ORDERED: BACI500O21 TOP (11:16)
[2021-05-22] MEDS ORDERED: CEPH500C PO (11:18)
[2021-05-22 11:30] VITALS: BP 122/70
== END 2021-05-22 11:32 | disposition home or self-care (01) ==
LOC: M ED 08:26
DX: T88.9XXA Complication of surgical and medical care, unspecified, initial encounter (principal); Y92.9 Unspecified place or not applicable; Y93.9 Activity, unspecified; G50.0 Trigeminal neuralgia; E73.9 Lactose intolerance, unspecified; Z79.899 Other long term (current) drug therapy; Z88.1 Allergy status to other antibiotic agents; Z88.8 Allergy status to other drugs, medicaments and biological substances

== ENCOUNTER → 2022-01-01 | Outpatient (REF) | payer BC ==
[~2022-01-01] MED LIST changes: +BACI500O21 TOP; +CEPH500C PO
== END ==
LOC: M SFHCCAPE 07:44
PROVIDERS: ATTEND Family Medicine
DX: Z13.21 Encounter for screening for nutritional disorder (principal)

== ENCOUNTER → 2022-09-22 | Outpatient (REF) | payer BC ==
[2022-09-22 17:33] LABS: HEMATOCRIT 41.1 % (36.0-47.0); HEMOGLOBIN 12.5 g/dl (12.0-15.5); MEAN CORPUSCULAR HEMOGLOBIN 26.5 pg (27.0-33.0); MEAN CORPUSCULAR HGB CONC 30.4 g/dl (32.0-36.5); MEAN CORPUSCULAR VOLUME 87.1 fl (80.0-96.0); PLATELET COUNT, AUTOMATED 322 10^3/uL (150-450); RED BLOOD COUNT 4.72 10^6/uL (4.00-5.40); WHITE BLOOD COUNT 6.9 10^3/uL (4.0-10.0)
[2022-09-22 19:02] LABS: BLOOD UREA NITROGEN 13 MG/DL (9-23); CALCIUM LEVEL 9.1 MG/DL (8.5-10.1); CARBON DIOXIDE LEVEL 30 MMOL/L (20-31); CHLORIDE LEVEL 105 MMOL/L (98-107); CHOLESTEROL LEVEL 148 MG/DL (<200); CHOLESTEROL RISK RATIO 3.44 (<5); FERRITIN 16.9 NG/ML (7.3-270.7); GLOMERULAR FILTRATION RATE > 60.0 (>58); GLUCOSE, FASTING 100 MG/DL (60-100); HDL CHOLESTEROL 42.9 MG/DL (>40); LDL CHOLESTEROL 87.3 MG/DL (<100); NON-HDL-C 105 MG/DL; POTASSIUM SERUM 3.9 MMOL/L (3.5-5.1); SODIUM LEVEL 143 MMOL/L (136-145); TRIGLYCERIDES LEVEL 89 MG/DL (<150)
== END ==
LOC: M SFHCCLAY 09:53
PROVIDERS: ATTEND Nurse Practitioner Family
DX: E78.5 Hyperlipidemia, unspecified (principal); D50.9 Iron deficiency anemia, unspecified

== ENCOUNTER → 2022-11-24 | Outpatient (CLI) | payer BC ==
[~2022-11-24] VITALS: Ht 160 cm; Wt 85.0 kg
[~2022-11-24] MED LIST changes: -ATOR1TAB21; +ATOR1TAB21 PO; +BENA25TA5 PO; -CETI-24; +CETI-24 PO; -FLUTISP; +FLUTISP NARES; -HYDR-3363; +HYDR-3363 PO; +LEXA1TAB2 PO; -PREG150C; +PREG150C PO; +RA A PO; -ZOLP5TAB; +ZOLP5TAB PO
[2022-11-24 08:25] VITALS: BP 107/68
== END ==
LOC: M PAL 08:02
PROVIDERS: ATTEND Nurse Practitioner Adult Health
DX: G50.0 Trigeminal neuralgia (principal); Z51.5 Encounter for palliative care; D64.9 Anemia, unspecified; F32.A Depression, unspecified; F41.9 Anxiety disorder, unspecified; K21.9 Gastro-esophageal reflux disease without esophagitis; M54.9 Dorsalgia, unspecified; Z88.8 Allergy status to other drugs, medicaments and biological substances; Z79.891 Long term (current) use of opiate analgesic; Z79.899 Other long term (current) drug therapy

== ENCOUNTER → 2023-03-23 | Outpatient (REF) | payer BC ==
[~2023-03-23] MED LIST changes: +FLUT50SP17 NARES; -FLUTISP NARES
[2023-03-23 18:01] LABS: BASO # 0.1 10^3/uL (0.0-0.2); BASO % 0.6 % (0.0-1.0); EOS % 0.4 % (0.0-3.0); HEMATOCRIT 39.8 % (36.0-47.0); HEMOGLOBIN 12.5 g/dl (12.0-15.5); LYMPH # 2.2 10^3/uL (1.5-5.0); LYMPH % 29.1 % (24.0-44.0); MEAN CORPUSCULAR HEMOGLOBIN 27.6 pg (27.0-33.0); MEAN CORPUSCULAR HGB CONC 31.4 g/dl (32.0-36.5); MEAN CORPUSCULAR VOLUME 87.9 fl (80.0-96.0); MONO # 0.5 10^3/uL (0.0-0.8); NEUTROPHILS # 4.9 10^3/uL (1.5-8.5); NEUTROPHILS % 63.5 % (36.0-66.0); PLATELET COUNT, AUTOMATED 298 10^3/uL (150-450); RED BLOOD COUNT 4.53 10^6/uL (4.00-5.40); WHITE BLOOD COUNT 7.7 10^3/uL (4.0-10.0)
[2023-03-23 18:18] LABS: ERYTHROCYTE SEDIMENTATION RATE 38 mm/hr (0-20)
[2023-03-23 18:33] LABS: ALBUMIN 3.7 G/DL (3.2-5.2); ALKALINE PHOSPHATASE 70 U/L (46-116); ALT/SGPT 22 U/L (7.0-40); AST/SGOT 17 U/L (<34); BILIRUBIN,TOTAL 0.5 MG/DL (0.3-1.2); BLOOD UREA NITROGEN 15 MG/DL (9-23); CARBON DIOXIDE LEVEL 29 MMOL/L (20-31); CHLORIDE LEVEL 105 MMOL/L (98-107); CHOLESTEROL LEVEL 144 MG/DL (<200); CHOLESTEROL RISK RATIO 2.92 (<5); CREATININE FOR GFR 0.97 MG/DL (0.55-1.30); GLOMERULAR FILTRATION RATE > 60.0 (>58); GLUCOSE, FASTING 89 MG/DL (60-100); HDL CHOLESTEROL 49.2 MG/DL (>40); LDL CHOLESTEROL 74.8 MG/DL (<100); NON-HDL-C 94.8 MG/DL; POTASSIUM SERUM 4.3 MMOL/L (3.5-5.1); SODIUM LEVEL 140 MMOL/L (136-145); TOTAL PROTEIN 6.7 G/DL (5.7-8.2); TRIGLYCERIDES LEVEL 100 MG/DL (<150)
[2023-03-23 18:34] LABS: C REACTIVE PROTEIN QUANTITATIV < 0.40 MG/DL (<1.0)
[2023-03-23 18:35] LABS: RHEUMATOID FACTOR QUANT < 3.5 IU/ML (<14)
[2023-03-23 18:36] LABS: FREE T4 1.01 NG/DL (0.89-1.76)
[2023-03-23 18:37] LABS: THYROID STIMULATING HORMONE 0.843 uIU/ML (0.55-4.78)
== END ==
LOC: M SFHCCLAY 09:53
PROVIDERS: ATTEND Nurse Practitioner Family
DX: E78.5 Hyperlipidemia, unspecified (principal); R76.8 Other specified abnormal immunological findings in serum

== ENCOUNTER → 2023-08-23 | Outpatient (REF) | payer BC ==
[~2023-08-23] MED LIST changes: -AMIT25TA17 PO; +AMIT25TA19 PO; -PREG150C PO; +PREG150C2 PO
== END ==
LOC: M SFHCDERM 14:17
PROVIDERS: ATTEND Physician Assistant
DX: L57.0 Actinic keratosis (principal)

== ENCOUNTER → 2023-08-24 | Outpatient (CLI) | payer BC ==
[~2023-08-24] MED LIST changes: +PROHANCE 279.3MG/ML 15ML VIAL ONE
== END ==
LOC: M PLAIMG 08:08
PROVIDERS: ATTEND Physician Assistant
DX: G50.0 Trigeminal neuralgia (principal); J32.0 Chronic maxillary sinusitis; J34.1 Cyst and mucocele of nose and nasal sinus
CPT/HCPCS: 70553; A9576

== ENCOUNTER → 2023-11-23 | Outpatient (CLI) | payer BC ==
[~2023-11-23] VITALS: Ht 157.5 cm; Wt 84.7 kg
[~2023-11-23] MED LIST changes: +BACTDSTA PO; -FLUT50SP17 NARES; +FLUTISP NARES; +PRED20TA PO; -PROHANCE 279.3MG/ML 15ML VIAL ONE
[2023-11-23 08:48] VITALS: BP 132/83; O2SAT 97
== END ==
LOC: M PAL 08:28
PROVIDERS: ATTEND Nurse Practitioner Adult Health
DX: G50.0 Trigeminal neuralgia (principal); G89.29 Other chronic pain; R68.84 Jaw pain; G50.1 Atypical facial pain; F41.9 Anxiety disorder, unspecified; F32.A Depression, unspecified; Z51.5 Encounter for palliative care; Z79.51 Long term (current) use of inhaled steroids; Z79.891 Long term (current) use of opiate analgesic; Z79.899 Other long term (current) drug therapy; Z88.8 Allergy status to other drugs, medicaments and biological substances

== ENCOUNTER 2023-11-30 03:39 | Emergency (ER) | payer BC ==
[~2023-11-30] VITALS: Ht 160 cm; Wt 83.3 kg
[2023-11-30 12:00] LABS: HEMATOCRIT 43.7 % (36.0-47.0); MEAN CORPUSCULAR HEMOGLOBIN 27.7 pg (27.0-33.0); MEAN CORPUSCULAR VOLUME 86.4 fl (80.0-96.0); PLATELET COUNT, AUTOMATED 338 10^3/uL (150-450); RED BLOOD COUNT 5.06 10^6/uL (4.00-5.40); WHITE BLOOD COUNT 16.4 10^3/uL (4.0-10.0)
[2023-11-30 12:09] LABS: ERYTHROCYTE SEDIMENTATION RATE 27 mm/hr (0-20)
[2023-11-30 12:21] LABS: ANISOCYTOSIS 1+; ATYPICAL LYMPH 9 % (0-5); BASOPHILS 2 % (0-1); C REACTIVE PROTEIN QUANTITATIV < 0.40 MG/DL (<1.0); LYMPHOCYTES 27 % (16-44); MONOCYTES 10 % (0-5); NEUTROPHILS 52 % (28-66); PLATELET ESTIMATE NORMAL (NORMAL)
[2023-11-30 12:22] LABS: BLOOD UREA NITROGEN 18 MG/DL (9-23); CALCIUM LEVEL 9.6 MG/DL (8.5-10.1); CARBON DIOXIDE LEVEL 30 MMOL/L (20-31); CHLORIDE LEVEL 103 MMOL/L (98-107); CREATININE FOR GFR 1.29 MG/DL (0.55-1.30); GLOMERULAR FILTRATION RATE 48.2 (>58); GLUCOSE, FASTING 84 MG/DL (60-100); MAGNESIUM LEVEL 1.9 MG/DL (1.8-2.4); OVALOCYTES 1+; POTASSIUM SERUM 3.8 MMOL/L (3.5-5.1); SODIUM LEVEL 139 MMOL/L (136-145)
[2023-11-30] MEDS ORDERED: KETOROLAC 30 MG/ML 1ML VIAL IV ONE (14:55)
[2023-11-30] MEDS ORDERED: diphenhydrAMINE 50MG/ML VIAL IV ONE (14:55)
[2023-11-30] MEDS ORDERED: NS 1,000 ML IV ONE (14:55)
[2023-11-30] MEDS ORDERED: METOCLOPRAMIDE INJ 10MG/2ML VIAL IV ONE (14:55)
[2023-11-30 15:08] LABS: RSV AMPLIFICATION NEGATIVE (NEGATIVE)
[2023-11-30 17:06] VITALS: BP 118/78; TEMP 98; O2SAT 100
== END 2023-11-30 17:07 | disposition home or self-care (01) ==
LOC: M ED 03:39
DX: J32.9 Chronic sinusitis, unspecified (principal); Z88.8 Allergy status to other drugs, medicaments and biological substances; Z91.011 Allergy to milk products; Z79.899 Other long term (current) drug therapy; Z79.2 Long term (current) use of antibiotics; Z79.52 Long term (current) use of systemic steroids
CPT/HCPCS: 70551; 80048; 83605; 83735; 84145; 85025; 85652; 86140; 87040; 87631; 96361; 96374; 96375; 99284; J1200; J1885; J2765

== ENCOUNTER → 2023-12-29 | Outpatient (CLI) | payer BC | LOC: M RAD 14:15 | PROVIDERS: ATTEND Physician Assistant | DX: J32.8 Other chronic sinusitis (principal) ==

== ENCOUNTER → 2024-02-28 | Outpatient (REF) | payer BC ==
[2024-02-28 13:22] LABS: BASO % 0.5 % (0.0-1.0); EOS # 0.1 10^3/uL (0.0-0.5); EOS % 1.2 % (0.0-3.0); HEMATOCRIT 40.4 % (36.0-47.0); HEMOGLOBIN 12.8 g/dl (12.0-15.5); LYMPH # 2.1 10^3/uL (1.5-5.0); LYMPH % 26.2 % (24.0-44.0); MEAN CORPUSCULAR HEMOGLOBIN 27.8 pg (27.0-33.0); MEAN CORPUSCULAR HGB CONC 31.7 g/dl (32.0-36.5); MEAN CORPUSCULAR VOLUME 87.8 fl (80.0-96.0); MONO # 0.6 10^3/uL (0.0-0.8); NEUTROPHILS # 5.2 10^3/uL (1.5-8.5); NEUTROPHILS % 64.6 % (36.0-66.0); PLATELET COUNT, AUTOMATED 287 10^3/uL (150-450)
[2024-02-28 13:48] LABS: TOTAL IRON BINDING CAPACITY 358 UG/DL (250-425)
[2024-02-28 13:49] LABS: THYROID STIMULATING HORMONE 1.067 uIU/ML (0.55-4.78)
[2024-02-28 13:50] LABS: FERRITIN 14.9 NG/ML (7.3-270.7); FREE T4 1.03 NG/DL (0.89-1.76); IRON (FE) 50 UG/DL (50-170)
[2024-02-28 13:53] LABS: ALBUMIN 3.4 G/DL (3.2-5.2); ALKALINE PHOSPHATASE 64 U/L (46-116); ALT/SGPT 13 U/L (7.0-40); AST/SGOT 11 U/L (<34); BILIRUBIN,TOTAL 0.7 MG/DL (0.3-1.2); BLOOD UREA NITROGEN 21 MG/DL (9-23); CALCIUM LEVEL 8.4 MG/DL (8.5-10.1); CARBON DIOXIDE LEVEL 29 MMOL/L (20-31); CHLORIDE LEVEL 105 MMOL/L (98-107); CHOLESTEROL LEVEL 162 MG/DL (<200); CHOLESTEROL RISK RATIO 3.52 (<5); CREATININE FOR GFR 1.03 MG/DL (0.55-1.30); GLOMERULAR FILTRATION RATE > 60.0 (>58); GLUCOSE, FASTING 75 MG/DL (60-100); LDL CHOLESTEROL 93.6 MG/DL (<100); POTASSIUM SERUM 4.2 MMOL/L (3.5-5.1); SODIUM LEVEL 142 MMOL/L (136-145); TOTAL PROTEIN 6.6 G/DL (5.7-8.2); TRIGLYCERIDES LEVEL 112 MG/DL (<150)
== END ==
LOC: M SFHCCLAY 08:46
PROVIDERS: ATTEND Nurse Practitioner Family
DX: G50.0 Trigeminal neuralgia (principal); R76.8 Other specified abnormal immunological findings in serum; D50.9 Iron deficiency anemia, unspecified; E78.5 Hyperlipidemia, unspecified; F41.9 Anxiety disorder, unspecified

== ENCOUNTER → 2024-05-11 | Outpatient (CLI) | payer BC ==
[~2024-05-11] MED LIST changes: +CARB-115 PO; -CARB200T98 PO
== END ==
LOC: M RAD 08:49
PROVIDERS: ATTEND Family Medicine
DX: J32.2 Chronic ethmoidal sinusitis (principal); Z53.9 Procedure and treatment not carried out, unspecified reason

== ENCOUNTER → 2024-05-29 | Outpatient (CLI) | payer BC | LOC: M RAD 14:52 | PROVIDERS: ATTEND Family Medicine | DX: J32.2 Chronic ethmoidal sinusitis (principal); G97.82 Other postprocedural complications and disorders of nervous system; G96.00 Cerebrospinal fluid leak, unspecified; J34.1 Cyst and mucocele of nose and nasal sinus ==

== ENCOUNTER → 2024-06-29 | Outpatient (CLI) | payer BC | LOC: M PLAIMG 14:44 | PROVIDERS: ATTEND Psychiatry & Neurology Neurology | DX: G44.099 Other trigeminal autonomic cephalgias (TAC), not intractable (principal) ==

== ENCOUNTER → 2024-09-14 | Outpatient (REF) | payer BC ==
[~2024-09-14] MED LIST changes: +[UNRECOGNIZED DRUG - CODE] PO; -[UNRECOGNIZED DRUG - CODE] PO
[2024-09-14 12:05] LABS: BASO # 0.1 10^3/uL (0.0-0.2); BASO % 0.6 % (0.0-1.0); EOS # 0.1 10^3/uL (0.0-0.5); EOS % 0.8 % (0.0-3.0); HEMATOCRIT 40.5 % (36.0-47.0); HEMOGLOBIN 13.1 g/dl (12.0-15.5); LYMPH # 2.8 10^3/uL (1.5-5.0); LYMPH % 35.2 % (24.0-44.0); MEAN CORPUSCULAR HEMOGLOBIN 28.2 pg (27.0-33.0); MEAN CORPUSCULAR HGB CONC 32.3 g/dl (32.0-36.5); MEAN CORPUSCULAR VOLUME 87.1 fl (80.0-96.0); MONO # 0.6 10^3/uL (0.0-0.8); MONO % 7.1 % (2.0-8.0); NEUTROPHILS # 4.4 10^3/uL (1.5-8.5); PLATELET COUNT, AUTOMATED 287 10^3/uL (150-450); RED BLOOD COUNT 4.65 10^6/uL (4.00-5.40); WHITE BLOOD COUNT 7.9 10^3/uL (4.0-10.0)
[2024-09-14 12:13] LABS: ALBUMIN 3.8 G/DL (3.2-5.2); ALKALINE PHOSPHATASE 64 U/L (35-104); ALT/SGPT 17 U/L (7.0-40); AST/SGOT 8 U/L (<34); BILIRUBIN,TOTAL 0.8 MG/DL (0.3-1.2); BLOOD UREA NITROGEN 20 MG/DL (9-23); CALCIUM LEVEL 9.5 MG/DL (8.5-10.1); CARBON DIOXIDE LEVEL 28 MMOL/L (20-31); CHLORIDE LEVEL 108 MMOL/L (98-107); CHOLESTEROL LEVEL 208 MG/DL (<200); CHOLESTEROL RISK RATIO 4.25 (<5); CREATININE FOR GFR 1.04 MG/DL (0.55-1.30); GLOMERULAR FILTRATION RATE > 60.0 (>58); GLUCOSE, FASTING 97 MG/DL (60-100); HDL CHOLESTEROL 48.9 MG/DL (>40); IRON (FE) 62 UG/DL (50-170); LDL CHOLESTEROL 133.3 MG/DL (<100); NON-HDL-C 159.1 MG/DL; PERCENT SATURATION 16.8 % (13.2-45.0); POTASSIUM SERUM 4.2 MMOL/L (3.5-5.1); SODIUM LEVEL 142 MMOL/L (136-145); TOTAL IRON BINDING CAPACITY 369 UG/DL (250-425); TOTAL PROTEIN 7.2 G/DL (5.7-8.2); TRIGLYCERIDES LEVEL 129 MG/DL (<150)
== END ==
LOC: M SFHCCLAY 08:04
PROVIDERS: ATTEND Nurse Practitioner Family
DX: E78.5 Hyperlipidemia, unspecified (principal); J32.0 Chronic maxillary sinusitis; F41.9 Anxiety disorder, unspecified; G51.8 Other disorders of facial nerve; D50.9 Iron deficiency anemia, unspecified

== ENCOUNTER → 2024-11-28 | Outpatient (CLI) | payer BC ==
[~2024-11-28] VITALS: Ht 162.6 cm; Wt 86.6 kg
[2024-11-28 13:05] VITALS: BP 127/79; O2SAT 98
== END ==
LOC: M PAL 12:44
PROVIDERS: ATTEND Family Medicine
DX: Z01.89 Encounter for other specified special examinations (principal); Z79.51 Long term (current) use of inhaled steroids; Z79.899 Other long term (current) drug therapy; Z88.8 Allergy status to other drugs, medicaments and biological substances

== ENCOUNTER → 2025-03-05 | Outpatient (REF) | payer BC ==
[2025-03-05 18:44] LABS: BASO # 0.1 10^3/uL (0.0-0.2); BASO % 0.7 % (0.0-1.0); EOS # 0.1 10^3/uL (0.0-0.5); EOS % 0.6 % (0.0-3.0); HEMATOCRIT 38.8 % (36.0-47.0); HEMOGLOBIN 12.5 g/dl (12.0-15.5); LYMPH # 2.6 10^3/uL (1.5-5.0); LYMPH % 30.1 % (24.0-44.0); MEAN CORPUSCULAR HGB CONC 32.2 g/dl (32.0-36.5); MONO # 0.5 10^3/uL (0.0-0.8); MONO % 6.1 % (2.0-8.0); NEUTROPHILS # 5.4 10^3/uL (1.5-8.5); NEUTROPHILS % 62.3 % (36.0-66.0); PLATELET COUNT, AUTOMATED 296 10^3/uL (150-450); RED BLOOD COUNT 4.31 10^6/uL (4.00-5.40); WHITE BLOOD COUNT 8.7 10^3/uL (4.0-10.0)
[2025-03-05 18:45] LABS: ALBUMIN 3.6 G/DL (3.2-5.2); BILIRUBIN,TOTAL 0.4 MG/DL (0.3-1.2); CALCIUM LEVEL 8.9 MG/DL (8.5-10.1); CHOLESTEROL RISK RATIO 3.71 (<5); CREATININE FOR GFR 0.86 MG/DL (0.55-1.30); GLOMERULAR FILTRATION RATE 85.9 (>58); HDL CHOLESTEROL 45.7 MG/DL (>40); LDL CHOLESTEROL 83.3 MG/DL (<100); NON-HDL-C 124.3 MG/DL; POTASSIUM SERUM 3.9 MMOL/L (3.5-5.1); TOTAL PROTEIN 6.6 G/DL (5.7-8.2)
[2025-03-05 19:09] LABS: HEMOGLOBIN A1c 5.4 % (4.0-6.0)
== END ==
LOC: M SFHCCAPE 08:41
PROVIDERS: ATTEND Nurse Practitioner Family
DX: E78.5 Hyperlipidemia, unspecified (principal); G51.8 Other disorders of facial nerve; J32.0 Chronic maxillary sinusitis; F41.9 Anxiety disorder, unspecified; D50.9 Iron deficiency anemia, unspecified

== ENCOUNTER → 2025-03-07 | Outpatient (REF) | payer BC ==
[2025-03-09 12:03] LABS: HPV APTIMA Not Detected (Not Detected)
== END ==
LOC: M SFHCWAGY 13:20
PROVIDERS: ATTEND Nurse Practitioner Family
DX: Z12.4 Encounter for screening for malignant neoplasm of cervix (principal); R87.610 Atypical squamous cells of undetermined significance on cytologic smear of cervix (ASC-US)

== ENCOUNTER → 2025-07-09 | Outpatient (REF) | payer BC ==
[~2025-07-09] MED LIST changes: -SM A PO
== END ==
LOC: M SFHCCLAY 11:51
PROVIDERS: ATTEND Physician Assistant
DX: R30.0 Dysuria (principal)

== ENCOUNTER → 2025-09-11 | Outpatient (REF) | payer BC ==
[~2025-09-11] MED LIST changes: -ZOLP5TAB PO; +ZOLP5TAB9 PO
[2025-09-11 13:26] LABS: BASO # 0.1 10^3/uL (0.0-0.2); BASO % 0.6 % (0.0-1.0); EOS # 0.0 10^3/uL (0.0-0.5); EOS % 0.5 % (0.0-3.0); LYMPH # 2.2 10^3/uL (1.5-5.0); LYMPH % 26.6 % (24.0-44.0); MONO # 0.6 10^3/uL (0.0-0.8); MONO % 7.5 % (2.0-8.0); NEUTROPHILS # 5.3 10^3/uL (1.5-8.5); NEUTROPHILS % 64.6 % (36.0-66.0); PLATELET COUNT, AUTOMATED 298 10^3/uL (150-450)
[2025-09-11 13:57] LABS: ALT/SGPT 21.0 U/L (7.0-40); AST/SGOT 15.0 U/L (<34); CALCIUM LEVEL 9.4 MG/DL (8.5-10.1); CARBON DIOXIDE LEVEL 30.0 MMOL/L (20-31); CHLORIDE LEVEL 103.0 MMOL/L (98-107); CHOLESTEROL LEVEL 209.0 MG/DL (<200); CHOLESTEROL RISK RATIO 4.12 (<5); CREATININE FOR GFR 1.05 MG/DL (0.55-1.30); GLOMERULAR FILTRATION RATE 67.2 (>58); IRON (FE) 67.0 UG/DL (50-170); LDL CHOLESTEROL 118.3 MG/DL (<100); NON-HDL-C 158.3 MG/DL; PERCENT SATURATION 16.9 % (13.2-45.0); POTASSIUM SERUM 4.5 MMOL/L (3.5-5.1); SODIUM LEVEL 143.0 MMOL/L (136-145); TRIGLYCERIDES LEVEL 200.0 MG/DL (<150)
== END ==
LOC: M SFHCCLAY 08:50
PROVIDERS: ATTEND Nurse Practitioner Family
DX: G51.8 Other disorders of facial nerve (principal); E78.5 Hyperlipidemia, unspecified; J32.0 Chronic maxillary sinusitis; F41.9 Anxiety disorder, unspecified; D50.9 Iron deficiency anemia, unspecified